=== PATIENT | female | born 1990 | race Caucasian/White ===

== ENCOUNTER 2024-01-27 15:39 | Outpatient (AMB) | payer OTHER, SELFPAY ==
--- NOTE | 2024-01-27 16:00 | A.OFFPC_ITS ---
Vital Signs 01/27/24 16:14 Height 5 ft 4 in Weight 115 lb 6 oz BMI 19.8 BP 98/68 Blood Pressure Location Lt brachial Position Sitting Respiration 12 Pulse 82 Pulse Source Pulse Oximeter Temp 98.4 F Temp Source Oral Pulse Oximetry (%) 99 Oxygen Delivery Method Room Air Intake Visit Reasons: Visit Intake Note: New patient visit. Requesting EKG, u/a w/reflex urine culture, and cbc for Urologist. Dining Room Manager Required: No Is last menstrual period known: Yes Last menstrual period: 01/04/24 Patient : No Allergies No Known Allergies Allergy (Verified 01/27/24 16:05) Medication List - Last Reconciled 01/27/24 by Stella Cisneros MD cholecalciferol (vitamin D3) 1,250 mcg PO QWEEK clonazepam 0.5 mg PO DAILY diphenhydramine-acetaminophen 25-500 mg (Tylenol PM Extra Strength) 1 tab PO BEDTIME PRN Tobacco use date assessed: 01/27/24 Dental Screening Dental Screen Date: 01/27/24 Did you have a dental visit in the last 12 months?: Yes Did you have a dental problem in the last 6 months where you did not have access to dental care?: No Was dental information given to patient?: Patient has dentist HPI HPI Comments History of Present Illness Details This is a 34 year old female with a past medical history of invasive endometriosis, left ureteral stent, right neprostomy presenting to reestablish care Endometriosis invading the ureters resulting in left ureter stenting, right nephrostomy placement. Follows local urology and at [facility] [place]. Doing well. On leuprolide q3 months. Anxiety has been high at times-uses clonazepam sparingly. Follows with employment educational coord-utd REPLACED BY [facility] Surgical History (Updated 01/27/24 @ 16:25 by Stella Cisneros MD) [place] teeth removed Hx of tonsillectomy Family History (Updated 01/27/24 @ 16:24 by Melisa Vargas CMA) Father HTN (hypertension) Mother Cardiovascular disease Maternal Grandfather Cardiovascular disease Maternal Grandfather Breast cancer Social History (Updated 01/27/24 @ 16:24 by Melisa Vargas CMA) Housing: House Patient Tobacco Use Status: Former Tobacco user Years Smoked: smoked recreationally e-Cigarette/Vaping Use: Never Used Second Hand Smoke Exposure: No service: No Current occupational status: employed Current occupation: [employer] Current occupational exposures/hazards: No Cognitive needs: No Hearing needs: No Vision needs: No Female Reproductive History Menstrual Date of last menstrual period: 01/04/24 Questionnaire PHQ-9 Over the last 2 weeks, how often have you been bothered by any of the following problems? 1. Little interest or pleasure in doing things: not at all 2. Feeling down, depressed, or hopeless: not at all 3. Trouble falling or staying asleep, or sleeping too much: not at all 4. Feeling tired or having little energy: not at all 5. Poor appetite or overeating: not at all 6. Feeling bad about yourself - or that you are a failure or have let yourself or your family down: not at all 7. Trouble concentrating on things, such as reading the newspaper or watching television: not at all 8. Moving or speaking so slowly that other people could have noticed. Or the opposite - being so fidgety or restless that you have been moving around a lot more than usual: not at all 9. Thoughts that you would be better off or of hurting yourself in some way: not at all Total score: 0 Depression Screening Interpretation: Negative (noted) Depression Screening Done: Yes 15119 - PHQ-9 Billing: Yes Source: Developed by Drs. Murali Rodriguez, Adwoa Brumfield, Jorge Llanos and colleagues, with an educational dionna from [employer] Thrive Questionnaire Date Thrive assessed: 01/27/24 I am a: Patient What is your living situation today?: I have a steady place to live Within the past 12 months, did the food you bought not last and you didn't have the money to get more?: Never true Within the past 12 months, did you worry whether your food would run out before you got money to buy more?: Never true Do you have trouble paying for medicines?: No Do you have trouble getting transportation to medical appointments?: No Do you have trouble paying your heating and electricity bill?: No Do you have trouble taking care of your child, family member or friend?: No Do you have trouble with day-to-day activities such as bathing, preparing meals, shopping, managing finances, etc.?: No Are you currently unemployed and looking for a job?: No Are you interested in more education?: No Currently or been in a relationship where the following occur: no concerns reported THRIVE Score: 0 AUDIT C Alcohol Use Questionnaire (AUDIT-C) 1. How often do you have a drink containing alcohol?: Monthly or less 2. How many drinks containing alcohol do you have on a typical day when you are drinking?: 1 or 2 Total Score: 1 LYSSA-7 AMB Questionnaire LYSSA-7 Date LYSSA - 7 assessed: 01/27/24 Feeling nervous, anxious, or on edge: 0 = Not at all Not being able to stop or control worryin = Not at all Worrying too much about different things: 0 = Not at all Trouble relaxin = Not at all Being so restless that it is hard to sit still: 0 = Not at all Becoming easily annoyed or irritable: 0 = Not at all Feeling afraid as if something awful might happen: 0 = Not at all Total LYSSA-7 score (0-4 normal; 5-9 mild; 10-14 moderate; 15-21 severe): 0 Source: Developed by Drs. Murali Rodriguez, Adwoa Brumfield, Jorge Llanos and colleagues, with an educational dionna from [employer] LYSSA-7 Assessment Billing LYSSA-7 Assessment Tool: LYSSA-7 Assessment 59673 Review of Systems Const Details: ROS CONSTITUTIONAL: Denies weight loss, fever and chills. HEENT: Denies changes in vision and hearing. RESPIRATORY: Denies SOB and cough. CV: Denies palpitations and CP GI: Denies abdominal pain, nausea, vomiting and diarrhea. : Denies dysuria and urinary frequency. MSK: Denies myalgia and joint pain. SKIN: Denies rash and pruritus. NEUROLOGICAL: Denies headache and syncope. PSYCHIATRIC: Denies recent changes in mood. Denies anxiety and depression. Physical exam (Primary Care) Vital Signs: Last Vital Signs Temp 98.4 F 01/27/24 16:14 Pulse 82 01/27/24 16:14 Resp 12 01/27/24 16:14 BP 98/68 01/27/24 16:14 Pulse Ox 99 01/27/24 16:14 Oxygen Delivery Method Room Air 01/27/24 16:14 PHYSICAL EXAM: GENERAL: Alert and oriented x 3. No acute distress. Well-nourished. EYES: EOMI. Anicteric. HENT: Moist mucous membranes. No scleral icterus. No cervical lymphadenopathy. LUNGS: Clear to auscultation bilaterally. No accessory muscle use. CARDIOVASCULAR: Regular rate and rhythm. No murmur. No JVD. ABDOMEN: Soft, non-tender and non-distended. No palpable masses. EXTREMITIES: No edema. Non-tender.?SKIN: No rashes or lesions. Warm. NEUROLOGIC: No focal neurological deficits. CN II-XII grossly intact PSYCHIATRIC: Cooperative. Appropriate mood and affect. BMI result Body Mass Index 19.8 Tobacco/Smoking Status: Tobacco use Status Tobacco use date assessed 01/27/24 01/27/24 16:11 Patient Tobacco Use Status Former Tobacco user 01/27/24 16:24 e-Cigarette/Vaping Use Never Used 01/27/24 16:24 PHQ-9: PHQ-9 Score PHQ-9: Total score 0 01/27/24 16:18 Depression Screening Interpretation: Negative (noted) Thrive Assessment: Date of Thrive Assessment Date Thrive assessed 01/27/24 01/27/24 16:18 Currently or been in a relationship where the following occur: no concerns reported Assessment and Plan Assessment & Plan (1) Anxiety: Comment: stable on clonazepam. Uses sparingly Code(s): F41.9 - Anxiety disorder, unspecified (2) LEATHA (acute kidney injury): Comment: Resolved. Monitor labs Code(s): N17.9 - Acute kidney failure, unspecified (3) Endometriosis: Comment: Following with urology, gynecology Code(s): N80.9 - Endometriosis, unspecified (4) Pre-op testing: Code(s): Z01.818 - Encounter for other preprocedural examination Plan: EKG reviewed, normal Orders: Orders Vitamin D 1,25 dihydroxy 01/27/24 N13.5 - Crossing vessel and stricture of ureter without hydronephrosis, N17.9 - Acute kidney failure, unspecified, Z93.6 - Other artificial openings of urinary tract status Comprehensive Met. Panel 01/27/24 N13.5 - Crossing vessel and stricture of ureter without hydronephrosis, N17.9 - Acute kidney failure, unspecified, Z93.6 - Other artificial openings of urinary tract status Parathyroid Hormone Intact 01/27/24 N13.5 - Crossing vessel and stricture of ureter without hydronephrosis, N17.9 - Acute kidney failure, unspecified, Z93.6 - Other artificial openings of urinary tract status AMB EKG-In Office 01/27/24 Z01.818 - Encounter for other preprocedural examination Medications: New leuprolide 1 mg (0.2 mL) subcut DAILY 1 ea 0RF Coding Level of Care Code Est Pt Level 5 (85631) Diagnoses Anxiety F41.9 LEATHA (acute kidney injury) N17.9 Endometriosis N80.9 Pre-op testing Z01.818 Additional Codes LYSSA-7 Assessment Billing - LYSSA-7 Assessment Tool: LYSSA-7 Assessment 30271 ([id number]) Time Spent (min) 42
[2024-01-27 16:14] VITALS: BP 98/68; PULSE 82; RESP 12; TEMP 36.9; O2SAT 99; BMI 19.8
== END 2024-01-27 16:46 | disposition home or self-care (01) ==
PROVIDERS: PCP Internal Medicine; Visit Provider Internal Medicine
DX: N17.9 Acute kidney failure, unspecified (principal); F41.9 Anxiety disorder, unspecified; N80.9 Endometriosis, unspecified; Z01.818 Encounter for other preprocedural examination
CPT/HCPCS: 99215

== ENCOUNTER 2024-01-29 09:54 | Outpatient (REF) | payer OTHER, SELFPAY ==
[2024-01-29 11:32] LABS: MANUAL DIFF FLAG NO
[2024-01-29 11:41] LABS: Appearance Urine Cloudy; Color Urine Yellow; Glucose Urine UA Negative (Negative); Leukocyte Esterase Urine Large (3+) (Negative); Nitrite Urine Positive (Negative); Specific Gravity - Urine <= 1.005 (1.005-1.025); UMIC TRIGGER UACC YES; Urine Blood Trace (Negative); Urine Ketones Negative (Negative); Urine Protein Trace mg/dL (Neg-Trace)
[2024-01-29 11:43] LABS: Basophils Absolute Auto 0.1 X10*3/uL (0.0-0.2); Basophils Percent Auto 0.9 % (0-2); Eosinophils Absolute Auto 0.1 X10*3/uL (0.0-0.4); Eosinophils Percent Auto 1.7 % (0-4); Hematocrit 35.5 % (37.0-47.0); Hemoglobin 11.3 g/dl (12.0-16.0); Imm Gran Abs Auto 0.02 X10*3/uL (0.00-0.03); Imm Gran Pct Auto 0.3 % (0.0-0.4); Lymphocytes Absolute Auto 1.5 X10*3/uL (1.2-4.9); Lymphocytes Percent Auto 21.1 % (20-40); Mean Corpuscular HGB Conc 31.8 g/dl (31.0-35.0); Mean Corpuscular Hemoglobin 25.1 pg (27.0-33.0); Mean Corpuscular Volume 78.9 fL (80.0-98.0); Mean Platelet Volume 10.3 fL (9.4-12.3); Monocytes Absolute Auto 0.5 X10*3/uL (0.1-1.2); Monocytes Percent Auto 7.3 % (2-11); Neutrophils Absolute Auto 4.8 x10*3/uL (2.0-8.3); Neutrophils Percent Auto 68.7 % (45-73); Platelet Count 247 X10*3/uL (160-400); Red Cell Distribution Width 13.4 % (11.0-16.0)
[2024-01-29 12:00] LABS: Bacteria Urine 1+ (None Seen); Hyaline Casts Urine 0-2 /LPF (0-2); RBC Urine 0-2 /HPF (0-2); Squamous Epithelial Cell Urine 0-2 /HPF (0-2); UACC Culture Trigger YES; WBC Clumps Urine Present; WBC Urine >50 /HPF (0-5)
[2024-01-29 12:21] LABS: Parathyroid Hormone Intact 68.5 pg/mL (8.7-77.1)
[2024-01-29 17:09] LABS: Alanine Aminotransferase 5 U/L (0-31); Albumin Level 4.1 g/dL (3.5-5.0); Alkaline Phosphatase 53 U/L (39-117); Anion Gap 11 (12-20); Aspartate Amino Transferase 11 U/L (5-31); Bilirubin Total 0.3 mg/dL (0.0-1.0); Blood Urea Nitrogen 10 mg/dL (9-16); Calcium 9.2 mg/dL (8.4-10.2); Carbon Dioxide 28 mmol/L (22-29); Chloride 102 mmol/L (96-108); Estimated Glomerular Filt Rate > 60; Glucose Random 88 mg/dL (60-115); Potassium 3.8 mmol/L (3.3-5.1); Sodium 137 mmol/L (135-145); Total Protein 7.4 g/dL (6.5-8.0)
[2024-02-02 05:54] LABS: VITAMIN D (1,25 OH) D3 59 pg/mL; Vit D (1,25-Dihydroxy) Total 59 pg/mL (18-72); Vitamin D (1,25 OH) D2 <8 pg/mL
== END 2024-01-29 09:55 | disposition home or self-care (01) ==
LOC: HO.WFDLDS 09:54
PROVIDERS: Urology; Visit Provider Internal Medicine
DX: N13.5 Crossing vessel and stricture of ureter without hydronephrosis (principal); N17.9 Acute kidney failure, unspecified; Z93.6 Other artificial openings of urinary tract status
CPT/HCPCS: 36415; 80053; 81001; 82652; 83970; 85025; 87086; 87088; 87186

== ENCOUNTER 2024-04-22 08:14 | Outpatient (REF) | payer OTHER, SELFPAY ==
[2024-04-22 11:13] LABS: MANUAL DIFF FLAG NO
[2024-04-22 11:22] LABS: Basophils Absolute Auto 0.1 X10*3/uL (0.0-0.2); Basophils Percent Auto 1.3 % (0-2); Eosinophils Absolute Auto 0.2 X10*3/uL (0.0-0.4); Eosinophils Percent Auto 4.2 % (0-4); Hematocrit 39.9 % (37.0-47.0); Hemoglobin 12.5 g/dl (12.0-16.0); Imm Gran Abs Auto 0.01 X10*3/uL (0.00-0.03); Imm Gran Pct Auto 0.2 % (0.0-0.4); Lymphocytes Absolute Auto 1.6 X10*3/uL (1.2-4.9); Lymphocytes Percent Auto 35.2 % (20-40); Mean Corpuscular HGB Conc 31.3 g/dl (31.0-35.0); Mean Corpuscular Hemoglobin 25.3 pg (27.0-33.0); Mean Corpuscular Volume 80.8 fL (80.0-98.0); Mean Platelet Volume 10.8 fL (9.4-12.3); Monocytes Absolute Auto 0.5 X10*3/uL (0.1-1.2); Neutrophils Absolute Auto 2.2 x10*3/uL (2.0-8.3); Neutrophils Percent Auto 49.1 % (45-73); Platelet Count 214 X10*3/uL (160-400); Red Blood Count 4.94 X10*6/uL (4.20-5.50); Red Cell Distribution Width 14.1 % (11.0-16.0); White Blood Count 4.5 X10*3/uL (4.8-10.8)
[2024-04-22 12:02] LABS: Anion Gap 11 (12-20); Blood Urea Nitrogen 12 mg/dL (9-16); Calcium 9.3 mg/dL (8.4-10.2); Carbon Dioxide 28 mmol/L (22-29); Chloride 104 mmol/L (96-108); Estimated Glomerular Filt Rate > 60; Glucose Random 68 mg/dL (60-115); Potassium 3.9 mmol/L (3.3-5.1); Sodium 139 mmol/L (135-145)
[2024-04-22 12:12] LABS: Appearance Urine Cloudy; Color Urine Yellow; Glucose Urine UA Negative (Negative); Leukocyte Esterase Urine Large (3+) (Negative); Nitrite Urine Positive (Negative); PH 7.5 (5.0-9.0); UMIC TRIGGER UACC YES; Urine Blood Small (1+) (Negative); Urine Ketones Negative (Negative); Urine Protein Negative (Neg-Trace)
[2024-04-22 13:19] LABS: Bacteria Urine Trace (None Seen); Hyaline Casts Urine 0-2 /LPF (0-2); UACC Culture Trigger YES; WBC Urine >50 /HPF (0-5)
== END 2024-04-22 08:15 | disposition home or self-care (01) ==
LOC: HO.WFDLDS 08:14
PROVIDERS: Visit Provider Urology
DX: N13.5 Crossing vessel and stricture of ureter without hydronephrosis (principal)
CPT/HCPCS: 36415; 80048; 81001; 81003; 85025; 87086

== ENCOUNTER 2024-04-23 15:38 | Outpatient (REF) | payer OTHER, SELFPAY ==
[2024-04-23 17:32] LABS: Appearance Urine Clear; Color Urine Yellow; Glucose Urine UA Negative (Negative); Leukocyte Esterase Urine Large (3+) (Negative); Nitrite Urine Positive (Negative); UMIC TRIGGER UACC YES; Urine Blood Small (1+) (Negative); Urine Ketones Negative (Negative); Urine Protein Negative (Neg-Trace)
[2024-04-23 17:43] LABS: Bacteria Urine None Seen (None Seen); Hyaline Casts Urine 0-2 /LPF (0-2); RBC Urine 0-2 /HPF (0-2); Squamous Epithelial Cell Urine 0-2 /HPF (0-2); UACC Culture Trigger YES; WBC Urine 21-50 /HPF (0-5)
== END 2024-04-23 15:39 | disposition home or self-care (01) ==
LOC: HO.WFDLDS 15:38
PROVIDERS: Visit Provider Urology
DX: N13.5 Crossing vessel and stricture of ureter without hydronephrosis (principal)
CPT/HCPCS: 81001

== ENCOUNTER 2024-06-02 12:36 | Outpatient (REF) | payer OTHER, SELFPAY | END 2024-06-02 12:37 | disposition home or self-care (01) | LOC: HO.WFDLDS 12:36 | PROVIDERS: Visit Provider Urology | DX: R30.0 Dysuria (principal) | CPT/HCPCS: 87086; 87088; 87186 ==

== ENCOUNTER 2024-06-16 09:45 | Outpatient (REF) | payer OTHER, SELFPAY ==
[2024-06-16 14:13] LABS: Appearance Urine Clear; Color Urine Yellow; Glucose Urine UA Negative (Negative); Leukocyte Esterase Urine Small (1+) (Negative); Nitrite Urine Negative (Negative); PH 6.5 (5.0-9.0); Specific Gravity - Urine <= 1.005 (1.005-1.025); UMIC TRIGGER UACC YES; Urine Blood Small (1+) (Negative); Urine Ketones Negative (Negative); Urine Protein Negative (Neg-Trace)
[2024-06-16 14:22] LABS: Bacteria Urine None Seen (None Seen); Hyaline Casts Urine 0-2 /LPF (0-2); RBC Urine 0-2 /HPF (0-2); Squamous Epithelial Cell Urine 0-2 /HPF (0-2); UACC Culture Trigger YES; WBC Urine 0-5 /HPF (0-5)
== END 2024-06-16 09:46 | disposition home or self-care (01) ==
LOC: HO.WFDLDS 09:45
PROVIDERS: Visit Provider Nurse Practitioner Women's Health
DX: R30.0 Dysuria (principal)
CPT/HCPCS: 81001; 87086